=== PATIENT | male | born 2000 | race American Indian/Alaskan Native ===

== ENCOUNTER 2019-02-07 20:58 | Emergency (ER) | payer OTHER ==
--- NOTE | 2019-02-07 21:12 | Emergency Department Report ---
Blank Doc - Documentation Documentation: This is a 18-year-old male that presents with right hand lac that happened 2 d ays ago. Stated was glass. This initial assessment/diagnostic orders/clinical plan/treatment(s) is/are subject to change based on patient's health status, clinical progression and re- assessment by fellow clinical providers in the ED. Further treatment and workup at subsequent clinical providers discretion. Patient/guardians urged not to elope from the ED as their condition may be serious if not clinically assessed and managed. Initial orders include: 1- Patient sent to [facility] for further evaluation and treatment 2- xray r/o foregin body
--- NOTE | 2019-02-07 22:45 | XRay Report ---
PROCEDURE: XR HAND 3+V RT TECHNIQUE: Right hand radiographs, PA, lateral, and oblique views. HISTORY: lac r/o foreign body COMPARISONS: None . FINDINGS: Fracture (s) and/or Dislocation(s): None . Alignment: Normal . Joint space(s): Normal . Soft tissues: Normal . Bone mineralization: Normal . Foreign bodies: None . IMPRESSION: Normal Examination . This document is electronically signed by Adiel Maddxo MD., February 07 2019 10:43:22 PM ET
[2019-02-08 01:07] VITALS: BP 103/70
--- NOTE | 2019-02-08 01:36 | Emergency Department Report ---
- General Chief Complaint: Wound/Laceration Stated Complaint: RT HAND CUT Time Seen by Provider: 02/07/19 21:11 Source: patient Mode of arrival: Ambulatory Limitations: No Limitations - History of Present Illness Initial Comments: Pt is a 18 yo male who presents to the ED with c/o a laceration to the right hand that occurred two nights ago. he states that he fell onto a glass bottle. he denies any pain in the hand. he states he only has discomfort around the laceration. he is able to move all digits. he denies any numbness or weakness. immunizations UTD per pt. no PMHx. no allergies to meds. - Related Data Previous Rx's Medication Instructions Recorded Last Taken Type cephALEXin [Keflex] 500 mg PO QID 7 Days #28 capsule 02/08/19 Unknown Rx Allergies Allergy/AdvReac Type Severity Reaction Status Date / Time No Known Allergies Allergy Unverified 02/07/19 21:14 ED Review of Systems ROS: Stated complaint: RT HAND CUT Other details as noted in HPI Comment: All other systems reviewed and negative ED Past Medical Hx - Past Medical History Previous Medical History?: Yes - Surgical History Past Surgical History?: Yes - Social History Smoking Status: Current Every Day Smoker Substance Use Type: Alcohol, Marijuana - Medications Home Medications: Home Medications Medication Instructions Recorded Confirmed Last Taken Type cephALEXin [Keflex] 500 mg PO QID 7 Days #28 capsule 02/08/19 Unknown Rx ED Physical Exam - General Limitations: No Limitations General appearance: alert, in no apparent distress - Head Head exam: Present: atraumatic, normocephalic - Eye Eye exam: Present: normal appearance, PERRL - ENT ENT exam: Present: mucous membranes moist - Respiratory Respiratory exam: Absent: respiratory distress - Neurological Exam Neurological exam: Present: alert, oriented X3 - Psychiatric Psychiatric exam: Present: normal affect, normal mood - Skin Skin exam: Present: warm, dry, other (4 cm laceration to the dorsal surface of the right hand overlying the proximal portion of the thumb, subcutaneous fat exposed, no tendon or muscle involvement, no foreign body visualized, FROM of the right hand, fingers, and thumb without difficulty, neurovascularly intact) ED Course Vital Signs 02/07/19 02/08/19 21:13 01:05 Temperature 98.9 F 98.9 F Pulse Rate 77 59 L Respiratory 16 18 Rate Blood Pressure 130/82 Blood Pressure 103/70 [Right] O2 Sat by Pulse 100 100 Oximetry ED Medical Decision Making - Radiology Data Radiology results: report reviewed PROCEDURE: XR HAND 3+V RT TECHNIQUE: Right hand radiographs, PA, lateral, and oblique views. HISTORY: lac r/o foreign body COMPARISONS: None . FINDINGS: Fracture (s) and/or Dislocation(s): None . Alignment: Normal . Joint space(s): Normal . Soft tissues: Normal . Bone mineralization: Normal . Foreign bodies: None . IMPRESSION: Normal Examination . This document is electronically signed by Gisella Maddox MD., February 07 2019 10:43:22 PM ET Transcribed By: [facility] [place] Dictated By: GISELLA MADDOX Electronically Authenticated By: GISELLA MADDOX Signed Date/Time: 02/07/19 6721 - Medical Decision Making Pt is a 18 yo male who presents to the ED with c/o a laceration to the right hand that occurred two nights ago. he states that he fell onto a glass bottle. he denies any pain in the hand. he states he only has discomfort around the laceration. he is able to move all digits. he denies any numbness or weakness. immunizations UTD per pt. no PMHx. no allergies to meds. on exam: 4 cm laceration to the dorsal surface of the right hand overlying the proximal portion of the thumb, subcutaneous fat exposed, no tendon or muscle involvement, no foreign body visualized, FROM of the right hand, fingers, and thumb without difficulty, neurovascularly intact. area irrigated with saline and cleaned with betadine. due to being >24 hours, repair was not performed due to the increased potential for infection. pt placed on keflex. discussed to please keep area clean and dry. may wash with soap and water and immediately dry. take all medication as prescribed. follow up with a primary care doctor in the next 2-3 days. return to the emergency room for any new or worsening symptoms as discussed or signs of infection despite abx therapy. Critical care attestation.: If time is entered above; I have spent that time in minutes in the direct care of this critically ill patient, excluding procedure time. ED Disposition Clinical Impression: Laceration of right hand Qualifiers: Encounter type: initial encounter Foreign body presence: without foreign body Qualified Code(s): S61.411A - Laceration without foreign body of right hand, initial encounter Disposition: DC-01 TO HOME OR SELFCARE Is pt being admited?: No Does the pt Need Aspirin: No Condition: Stable Instructions: Laceration (ED) Additional Instructions: please keep area clean and dry. may wash with soap and water and immediately dry. take all medication as prescribed. follow up with a primary care doctor in the next 2-3 days. return to the emergency room for any new or worsening symptoms as discussed. Prescriptions: cephALEXin [Keflex] 500 mg PO QID 7 Days #28 capsule Referrals: LIYA LOGAN MD [Primary Care Provider] - 2-3 Days Forms: Accompanied Note, Work/School Release Form(ED) Time of Disposition: 01:36 Print Language: PORTUGUESE
[2019-02-08] MEDS ORDERED: NACL 0.9% 500 ML IR ONE (02:05)
[2019-02-08] MEDS ORDERED: NACL 0.9% IR ONE (08:58)
== END 2019-02-08 02:24 | disposition home or self-care (01) ==
LOC: ED 20:58
DX: S61.411A Laceration without foreign body of right hand, initial encounter (principal); F17.200 Nicotine dependence, unspecified, uncomplicated; F12.10 Cannabis abuse, uncomplicated; W01.110A Fall on same level from slipping, tripping and stumbling with subsequent striking against sharp glass, initial encounter; Y93.89 Activity, other specified; Y92.89 Other specified places as the place of occurrence of the external cause; Y99.8 Other external cause status
CPT/HCPCS: 99283